=== PATIENT | male | born 1990 | race Two or more races ===

== ENCOUNTER 2024-05-09 18:55 | Emergency (ER) | payer OTHER ==
[~2024-05-09] VITALS: Ht 170.2 cm; Wt 81.6 kg
[2024-05-09] MEDS ORDERED: ERYT3.5O9 LEFTEYE (19:08)
[2024-05-09] MEDS ORDERED: ERYTHROMYCIN BASE OPHTH 3.5 GM TUBE ONE (19:37)
[2024-05-09] MEDS: ERYTHROMYCIN BASE OPHTH 3.5 GM TUBE OP STA (19:44)
[2024-05-09 20:16] VITALS: BP 132/66; TEMP 98; O2SAT 98
== END 2024-05-09 20:17 ==
LOC: ER 20:09
DX: S05.02XA Injury of conjunctiva and corneal abrasion without foreign body, left eye, initial encounter (principal); X58.XXXA Exposure to other specified factors, initial encounter; Y93.89 Activity, other specified; Y92.89 Other specified places as the place of occurrence of the external cause; Y99.8 Other external cause status